=== PATIENT | male | born 1985 ===

== ENCOUNTER 2019-01-13 16:53 | Inpatient (IN) ==
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
[2019-01-13] MEDS ORDERED: Nicotine 21 MG PATCH.TD24 TD ONE (21:17)
[2019-01-13 21:49] LABS: BUN/Creatinine Ratio 16 (6-26); Blood Urea Nitrogen 16 mg/dL (6-20); eGFR For African Americans > 60 (> 60); eGFR For Non-African Americans > 60 (> 60)
[2019-01-13] MEDS ORDERED: *HR* HYDROcodone/Acet 5/325 mg TABLET PO PRN (23:31)
[2019-01-13] MEDS ORDERED: Naloxone 0.4 MG/ML INJ IVP PRN (23:31)
[2019-01-13] MEDS ORDERED: Acetaminophen 325 MG TABLET PO PRN (23:31)
[2019-01-13] MEDS ORDERED: Melatonin 3 MG TABLET PO PRN (23:34)
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
[2019-01-14 03:00] LABS: Hematocrit 42.5 % (37.5-50.1); Hemoglobin 13.6 g/dL (12.9-16.9); Mean Corpuscular Hemoglobin 28.9 pg (28.0-33.3); Mean Corpuscular Volume 90.4 fL (83.0-100.0); Mean Platelet Volume 8.7 fL (9.4-12.4); Platelet Count 316 K/mcL (140-400); Red Cell Distribution Width 14.3 % (11.5-14.5); White Blood Count 12.2 K/mcL (4.3-11.1)
[2019-01-14 03:20] LABS: BUN/Creatinine Ratio 16 (6-26); Blood Urea Nitrogen 16 mg/dL (6-20); Calcium 9.3 mg/dL (8.6-10.3); Carbon Dioxide 27 mEq/L (23-29); Chloride 104 mEq/L (98-107); Glucose 109 mg/dL (70-105); Osmolality,Calculated 292 (280-300); Potassium 3.5 mEq/L (3.5-5.1); Sodium 140 mEq/L (136-145); eGFR For African Americans > 60 (> 60); eGFR For Non-African Americans > 60 (> 60)
[2019-01-14] MEDS ORDERED: Ondansetron 4 MG/2 ML VIAL IVP PRN (04:48)
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
--- NOTE | 2019-01-14 13:27 | Internal Med Progress Note ---
<Jake Lundberg - Last Filed: 01/14/19 13:24> Hospitalist Progress Note - Encounter Date of Encounter: 01/14/19 Time of Encounter: 09:50 - Subjective Interval History: When seen this morning, patient was resting comfortably in his bed. He continues to admit to soreness in his 4th finger of his R hand. He denies any fever, cou gh, or wheezing. Denies any chest pain or SOB. Admits to swelling and pain in his R knee. - Exam Vitals: Temp Pulse Resp BP Pulse Ox 98.2 F 85 14 126/83 85 01/14/19 11:53 01/14/19 11:53 01/14/19 11:53 01/14/19 11:53 01/14/19 11:53 Exam: GENERAL APPEARANCE: Well developed, well nourished, alert and cooperative, and appears to be in no acute distress. HEAD: normocephalic. EYES: vision is grossly intact. EARS: hearing grossly intact. NOSE: No nasal discharge. THROAT: Oral cavity and pharynx normal. No inflammation, swelling, exudate, or lesions. CARDIAC: Normal S1 and S2. No S3, S4 or murmurs. Rhythm is regular. There is no peripheral edema, cyanosis or pallor. Extremities are warm and well perfused. Capillary refill is less than 2 seconds. No carotid bruits. LUNGS: Clear to auscultation and percussion without rales, rhonchi, wheezing or diminished breath sounds. ABDOMEN: Positive bowel sounds. Soft, nondistended, nontender. No guarding or rebound. No masses. EXTREMITIES: Minor swelling of the 4th metatarsal on the R hand. Patient able to move all fingers. Sensations intact. Minor tenderness with palpation. LOWER EXTREMITY: Mild erythema and swelling of the R knee. PSYCHIATRIC: The mental examination revealed the patient was oriented to person, place, and time. - Assessment and Plan (1) Osteomyelitis of right hand Current Visit: Yes Status: Acute Assessment and Plan: He has been afebrile. Patient has been seen by orthopedics. Plan for formal debridement in the operating room with Dr. Peguero tomorrow. Plan: - C/W IV vancomycin day #1. - NPO at midnight. - Blood Cx NGTD. - Monitor for worsening signs of infection. (2) Cellulitis Current Visit: Yes Status: Acute Assessment and Plan: Erythematous swelling over the R knee. with small skin abrasion in the center. Patient retains full ROM. Started on IV vancomycin. Plan: - C/W IV vancomycin. - Blood Cx NGTD. (3) Nicotine abuse Current Visit: Yes Status: Acute Assessment and Plan: Nicotine patch. DVT Prophylaxis: SCDs. - Time Spent with Patient Total time spent is greater than 50% in coordination of care (as documented) at patient's floor/unit and/or counseling patient: Internal Medicine: Result - Labs CBC & Chem 7: 01/14/19 02:23 01/14/19 02:23 Labs: Short CBC 01/14/19 Range/Units 02:23 WBC 12.2 H (4.3-11.1) K/mcL Hgb 13.6 (12.9-16.9) g/dL Hct 42.5 (37.5-50.1) % Plt Count 316 (140-400) K/mcL BMP 01/13/19 01/14/19 21:00 02:23 Sodium 140 Potassium 3.5 Chloride 104 Carbon Dioxide 27 BUN 16 16 Creatinine 1.03 1.01 Glucose 109 H Calcium 9.3 Consult Discharge Plan - Plan Referrals: NONE,PCP [Primary Care Provider] - <Ryan Whaley - Last Filed: 01/14/19 14:21> Hospitalist Progress Note - Encounter Date of Encounter: 01/14/19 - Exam Vitals: Temp Pulse Resp BP Pulse Ox 98.2 F 85 14 126/83 85 01/14/19 11:53 01/14/19 11:53 01/14/19 11:53 01/14/19 11:53 01/14/19 11:53 - Assessment and Plan (1) Osteomyelitis of right hand Current Visit: Yes Status: Acute (2) DVT prophylaxis Current Visit: Yes Status: Acute (3) Nicotine abuse Current Visit: Yes Status: Acute (4) Cellulitis Current Visit: Yes Status: Acute - Time Spent with Patient Total time spent is greater than 50% in coordination of care (as documented) at patient's floor/unit and/or counseling patient: Internal Medicine: Result - Labs CBC & Chem 7: 01/14/19 02:23 01/14/19 02:23 Labs: Short CBC 01/14/19 Range/Units 02:23 WBC 12.2 H (4.3-11.1) K/mcL Hgb 13.6 (12.9-16.9) g/dL Hct 42.5 (37.5-50.1) % Plt Count 316 (140-400) K/mcL BMP 01/13/19 01/14/19 21:00 02:23 Sodium 140 Potassium 3.5 Chloride 104 Carbon Dioxide 27 BUN 16 16 Creatinine 1.03 1.01 Glucose 109 H Calcium 9.3 - Attending Attestation I examined this patient and my medical decision-making was reviewed with the Resident Physician on 01/14/19. I agree with the documented findings, disposition and treatment plan as described except to the extent set forth below. Mr Murphy is currently admitted for acute OM of R hand. He is to go to OR. He remains moderate to high risk due to potential for worsening clinical status. Mr Murphy won't answer questions for me. Friend says he is in pain. He won't make eye contact with me. Had visitors earlier - concern for drugs relayed by nursing. No specific evidence found. No further nausea. No SOB. Did not sleep well. Exam Hand with some swelling noted. Does not meet my eyes. Plan: No visitors. Drug screen. Surgery tomorrow per ortho. Continue IV abx. <Jake Lundberg - Last Filed: 01/14/19 13:24> (1) Osteomyelitis of right hand Qualifiers: Osteomyelitis type: unspecified type Qualified Code(s): M86.9 - Osteomyelitis, unspecified (2) Cellulitis Qualifiers: Site of cellulitis of extremity: lower extremity Laterality: right Qualified Code(s): L03.115 - Cellulitis of right lower limb <Ryan Whaley - Last Filed: 01/14/19 14:21> (1) Osteomyelitis of right hand Qualifiers: Osteomyelitis type: other chronic Qualified Code(s): M86.641 - Other chronic osteomyelitis, right hand (4) Cellulitis Qualifiers: Site of cellulitis of extremity: lower extremity Laterality: right Qualified Code(s): L03.115 - Cellulitis of right lower limb
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
[2019-01-14] MEDS ORDERED: Melatonin 3 MG TABLET PO PRN (14:21)
[2019-01-14] MEDS ORDERED: hydrOXYzine pamoate 25 MG CAPSULE PO PRN (16:04)
[2019-01-14 16:57] LABS: Amphetamine Screen,Urine Positive ng/mL (Cutoff=1000); Barbiturate Screen,Urine Negative ng/mL (Cutoff=200); Benzodiazepines Screen,Urine Positive ng/mL (Cutoff=200); Cannabinoid Screen,Urine Negative ng/mL (Cutoff = 50); Cocaine Screen,Urine Negative ng/mL (Cutoff= 300); Opiate Screen,Urine Negative ng/mL (Cutoff=300); Phencyclidine Screen,Urine Negative ng/mL (Cutoff=25)
[2019-01-14] MEDS ORDERED: Benzocaine 20% 12 APPL GEL..GRAM. TP PRN (20:20)
[2019-01-14] MEDS ORDERED: Nicotine 7 MG PATCH.TD24 TD SCH (20:30)
[2019-01-14] MEDS ORDERED: Nicotine 2 MG GUM BC PRN (21:41)
--- NOTE | 2019-01-14 21:45 | Event Note ---
Date of Encounter: 01/14/19 Time of Encounter: 21:30 Notified by nurse of patient threatening to leave and kill himself. Assessed patient at bedside and told him we were informed by his nurse of his threat to leave and harm himself. Asked if this were true and he said he would never do it because he loves life too much. Asked again if he had any thoughts of harming himself or anyone else and he continues to deny it. Requests to go outside to smoke, informed he cannot, but will order nicotine patch and gum and patient is agreeable. Family at bedside at this time. Denies any other needs at this time. Nurse to notify of any changes.
[2019-01-15 01:55] LABS: Bilirubin,Urine Negative (Negative); Blood,Urine Negative (Negative); Clarity,Urine Clear (Clear); Color,Urine Yellow (Yellow); Glucose,Urine (UA) Normal (Normal); Ketones,Urine Negative (Negative); Leukocyte Esterase,Urine Negative (Negative); Nitrite,Urine Negative (Negative); Protein,Urine Negative (Neg-Trace); Specific Gravity,Urine 1.025 (1.010-1.025); Urobilinogen,Urine Normal (Normal)
[2019-01-15] MEDS ORDERED: Isovue-370 500 ML BOTTLE IVP ONE (06:51)
[2019-01-15 06:56] VITALS: BP 129/78
--- NOTE | 2019-01-15 06:58 | Orthopedics Progress Note ---
Date of Encounter: 01/15/19 Time of Encounter: 06:52 Subjective Interval history: S: The patient is sitting up in his chair sleeping. He is very somnolent and barely arousable. He is refusing exam. O: AFVSS Right upper extremity skin and soft tissues intact with mild swelling between the long and ring fingers along the dorsal aspect with mild redness. Tenderness to palpation as expected. He will not comply with neurovascular exam. Right lower extremity shows palms sized patch of erythema along the anterior knee in the suprapatellar region with what appears to be a punctate lesion. It is quite tender. He refuses any further examination of the. I am not able to evaluate for knee effusion or motion of the knee. He will not comply with a distal neurovascular exam. Diagnostic Imaging: I did personally review and interpret x-rays of the right hand consistent with osteomyelitis of the ring finger metacarpal head. A: Right ring finger metacarpal had osteomyelitis Likely subcutaneous abscess along the right knee suprapatellar region P: Plan for incision, drainage, irrigation, debridement of the right hand today in the operating room. CT scan with contrast to evaluate for abscess of the right knee and I anticipate drainage of this as well under the same anesthetic. Nothing by mouth. Objective Vital signs: Vital Signs Temp Pulse Resp BP Pulse Ox 01/15/19 04:30 97.6 F 71 126/82 97 01/14/19 23:07 98.2 F 92 18 124/87 99 01/14/19 18:40 98.1 F 101 20 135/91 100 01/14/19 16:00 97.8 F 100 16 142/89 99 01/14/19 11:53 98.2 F 85 14 126/83 85 01/14/19 07:08 97.7 F 94 16 119/78 100 Intake and Output 01/14/19 01/14/19 01/15/19 15:59 23:59 07:59 Intake Total 720 / 1950 840 / 1950 0 / 0 Output Total 650 / 1250 600 / 1250 0 / 0 Balance 70 / 700 240 / 700 0 / 0 Intake: IV Fluids 500 / 500 Vancocin 1,000 MG In 0.9 % 500 / 500 Sodium Chloride 250 ML @ 166. 667 mls/hr IVPB Q12H AJ Rx#: [id number] Oral 720 / 1450 340 / 1450 0 / 0 Output: Urine 650 / 1250 600 / 1250 0 / 0 Other: Meal Breakfast Percent of Meal Consumed 75% # Voids 1 - Labs CBC & BMP: 01/14/19 02:23 01/14/19 02:23 Labs: Abnormal lab results WBC 12.2 K/mcL (4.3-11.1) H 01/14/19 02:23 MPV 8.7 fL (9.4-12.4) L 01/14/19 02:23 Glucose 109 mg/dL (70-105) H 01/14/19 02:23 Ur Amphetamines Screen Positive ng/mL ([id number]) H 01/14/19 16:30 U Benzodiazepines Scrn Positive ng/mL ([id number]=[id number]) H 01/14/19 16:30 Consult Discharge Plan - Plan Referrals: NONE,PCP [Primary Care Provider] -
--- NOTE | 2019-01-15 08:43 | Internal Med Progress Note ---
Hospitalist Progress Note - Encounter Date of Encounter: 01/15/19 - Exam Vitals: Temp Pulse Resp BP Pulse Ox 97.8 F 76 18 129/78 96 01/15/19 06:34 01/15/19 06:34 01/15/19 06:34 01/15/19 06:34 01/15/19 06:34 - Time Spent with Patient Total time spent is greater than 50% in coordination of care (as documented) at patient's floor/unit and/or counseling patient: Internal Medicine: Result - Labs CBC & Chem 7: 01/14/19 02:23 01/14/19 02:23 Labs: Urine 01/15/19 Range/Units 01:35 Urine Color Yellow (Yellow) Urine Clarity Clear (Clear) Urine pH 6.0 (5.0-8.0) pH Units Ur Specific [place] 1.025 (1.010-1.025) Urine Protein Negative (Neg-Trace) mg/dL Urine Glucose (UA) Normal (Normal) mg/dL - Impressions Impressions Knee CT 01/15/19 06:51 IMPRESSION: 1. Findings compatible with cellulitis over the anterior aspect of the right knee. 2. No CT scan evidence of abscess or osteomyelitis. No radiopaque foreign bodies. D/ / Niranjan Carpio MD / Niranjan Carpio MD Interpreting Provider: Niranjan Carpio MD Consult Discharge Plan - Plan Referrals: NONE,PCP [Primary Care Provider] -
[2019-01-15] MEDS ORDERED: Aminoglycoside Consult 1 EACH MC ONE (09:17)
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
== END 2019-01-15 09:18 | disposition left against medical advice (07) | DRG 344 ==
LOC: 3NENU 16:53 → EMEROOARM 16:53 → SUATTDRO 20:48 → 3NENU 22:01
PROVIDERS: ADMIT Family Medicine; ATTEND Internal Medicine

== ENCOUNTER 2019-05-04 10:05 | Inpatient (IN) ==
[2019-05-04] MEDS ORDERED: Albuterol 2.5 MG/3 ML NEBULIZER IH PRN ×2 (10:34→13:37)
[2019-05-04] MEDS ORDERED: Ringers Solution, Lactated 1,000 ML IVC SCH (10:45)
[2019-05-04] MEDS ORDERED: Morphine Sulfate 2 MG/ML SYRINGE IVP PRN ×2 (10:51→13:37)
[2019-05-04] MEDS ORDERED: *HR* HYDROcodone/Acet 5/325 mg TABLET PO PRN (10:51)
[2019-05-04] MEDS ORDERED: Ibuprofen 400 MG TABLET PO PRN ×2 (11:08→13:37)
[2019-05-04] MEDS ORDERED: Ondansetron 4 MG/2 ML VIAL IVP PRN ×2 (11:08→13:37)
[2019-05-04] MEDS ORDERED: Acetaminophen 325 MG TABLET PO PRN ×2 (11:08→13:37)
[2019-05-04] MEDS ORDERED: Lidocaine -MPF 2% 2 ML VIAL ONE (11:53)
[2019-05-04] MEDS ORDERED: *HR* Midazolam HCl 5 MG/5 ML VIAL IVP ONE (11:53)
[2019-05-04] MEDS ORDERED: *HR* FentaNYL (PF) 100 MCG/2 ML VIAL ONE (11:53)
[2019-05-04] MEDS ORDERED: Dexamethasone 4 MG/ML VIAL ONE (11:53)
[2019-05-04] MEDS ORDERED: Ondansetron 4 MG/2 ML VIAL ONE (11:53)
[2019-05-04] MEDS ORDERED: *HR* Propofol 200 MG/20 ML VIAL IVP ONE (11:53)
[2019-05-04] MEDS ORDERED: Vancomycin 1,000 MG VIAL ONE (12:10)
[2019-05-04] MEDS ORDERED: Nicotine 21 MG PATCH.TD24 TD SCH (12:45)
[2019-05-05 05:19] LABS: Basophils % 0.5 %; Eosinophils % 0.2 %; Immature Granulocytes % 0.1 % (0-4); Lymphocytes # 1.8 K/mcL (0.6-4.6); Lymphocytes % 21.1 %; Mean Corpuscular HGB Conc 32.6 g/dL (31.6-35.5); Mean Corpuscular Volume 92.3 fL (83.0-100.0); Mean Platelet Volume 9.3 fL (9.4-12.4); Monocytes # 0.8 K/mcL (0.0-1.3); Monocytes % 8.6 %; Platelet Count 321 K/mcL (140-400); Red Blood Count 4.66 M/mcL (4.19-5.50); Red Cell Distribution Width 15.5 % (11.5-14.5); Segmented Neutrophils % 69.5 %; White Blood Count 8.7 K/mcL (4.3-11.1)
[2019-05-05 05:37] LABS: BUN/Creatinine Ratio 18 (6-26); Blood Urea Nitrogen 14 mg/dL (6-20); Calcium 9.1 mg/dL (8.6-10.3); Carbon Dioxide 27 mEq/L (23-29); Chloride 107 mEq/L (98-107); Glucose 124 mg/dL (70-105); Magnesium 1.8 mg/dL (1.6-2.6); Osmolality,Calculated 292 (280-300); Potassium 3.8 mEq/L (3.5-5.1); Sodium 140 mEq/L (136-145); eGFR For African Americans > 60 (> 60); eGFR For Non-African Americans > 60 (> 60)
[2019-05-05] MEDS: Ringers Solution, Lactated 1,000 ML IVC SCH ×2 (06:21→16:29)
[2019-05-05] MEDS ORDERED: Nicotine 21 MG PATCH.TD24 TD SCH (12:45)
[2019-05-05] MEDS ORDERED: Cefepime HCl 2,000 MG in Water for inj. (sterile) 20 ML IVP SCH (16:32)
[2019-05-05 16:41] VITALS: BP 110/69
[2019-05-05] MEDS ORDERED: *HR* Heparin 5,000 UNIT/ML VIAL SQ SCH (18:00)
[2019-05-05] MEDS ORDERED: Aminoglycoside Consult 1 EACH MC ONE (18:15)
== END 2019-05-05 18:16 | disposition left against medical advice (07) | DRG 316 ==
LOC: SAMDAY 10:05 → SUATTDRO 13:38 → 3NENU 13:38
PROVIDERS: ADMIT Internal Medicine; ATTEND Internal Medicine

== ENCOUNTER 2019-05-08 12:04 | Inpatient (IN) ==
[2019-05-08] MEDS ORDERED: Ipratropium/Albuterol Neb 3 ML IH ONE (12:37)
[2019-05-08] MEDS ORDERED: 0.9 % Sodium Chloride 1,000 ML IVC ONE (13:25)
[2019-05-08 14:54] LABS: Basophils # 0.1 K/mcL (0.0-0.2); Basophils % 0.8 %; Eosinophils # 0.1 K/mcL (0.0-0.6); Hematocrit 41.5 % (37.5-50.1); Hemoglobin 14.5 g/dL (12.9-16.9); Immature Granulocytes % 0.3 % (0-4); Lymphocytes # 2.1 K/mcL (0.6-4.6); Lymphocytes % 27.3 %; Mean Corpuscular HGB Conc 34.9 g/dL (31.6-35.5); Mean Corpuscular Hemoglobin 30.2 pg (28.0-33.3); Mean Corpuscular Volume 86.5 fL (83.0-100.0); Mean Platelet Volume 8.6 fL (9.4-12.4); Monocytes # 0.9 K/mcL (0.0-1.3); Monocytes % 11.5 %; Neutrophils # 4.6 K/mcL (1.6-8.9); Platelet Count 384 K/mcL (140-400); Red Cell Distribution Width 15.2 % (11.5-14.5); Segmented Neutrophils % 59.1 %; White Blood Count 7.8 K/mcL (4.3-11.1)
[2019-05-08] MEDS ORDERED: Naloxone 0.4 MG/ML INJ IVP PRN (15:06)
[2019-05-08 15:09] LABS: BUN/Creatinine Ratio 17 (6-26); Blood Urea Nitrogen 17 mg/dL (6-20); Calcium 9.8 mg/dL (8.6-10.3); Carbon Dioxide 27 mEq/L (23-29); Chloride 103 mEq/L (98-107); Glucose 110 mg/dL (70-105); Osmolality,Calculated 292 (280-300); Potassium 3.5 mEq/L (3.5-5.1); Sodium 140 mEq/L (136-145); eGFR For African Americans > 60 (> 60); eGFR For Non-African Americans > 60 (> 60)
[2019-05-08] MEDS ORDERED: Piperacillin/Tazobactam 3.375 GM in 0.9 % Sodium Chloride Mini Bag 100 ML IVPB SCH (16:00)
[2019-05-08] MEDS: Ketorolac 15 MG/ML VIAL IVP SCH ×2 (18:33→18:42)
[2019-05-08] MEDS: Ringers Solution, Lactated 1,000 ML IVC SCH (18:42)
[2019-05-08] MEDS: Cefepime HCl 2,000 MG in 0.9 % Sodium Chloride Mini Bag 100 ML IVPB SCH (18:42)
[2019-05-08] MEDS: *HR* Heparin 5,000 UNIT/ML VIAL SQ SCH (18:43)
[2019-05-08] MEDS: *HR* LORazepam 2 MG/ML VIAL IVP PRN (22:18)
[2019-05-09] MEDS: Ketorolac 15 MG/ML VIAL IVP SCH ×4 (00:09→17:44)
[2019-05-09] MEDS: Cefepime HCl 2,000 MG in 0.9 % Sodium Chloride Mini Bag 100 ML IVPB SCH ×3 (01:31→17:39)
[2019-05-09 04:50] LABS: Hematocrit 39.5 % (37.5-50.1); Mean Corpuscular HGB Conc 32.9 g/dL (31.6-35.5); Mean Platelet Volume 8.4 fL (9.4-12.4); Platelet Count 306 K/mcL (140-400); Red Blood Count 4.34 M/mcL (4.19-5.50); Red Cell Distribution Width 15.2 % (11.5-14.5)
[2019-05-09 05:10] LABS: BUN/Creatinine Ratio 18 (6-26); Blood Urea Nitrogen 17 mg/dL (6-20); C-Reactive Protein < 5 mg/L (Less than 10); Calcium 8.8 mg/dL (8.6-10.3); Carbon Dioxide 22 mEq/L (23-29); Chloride 110 mEq/L (98-107); Glucose 94 mg/dL (70-105); Osmolality,Calculated 289 (280-300); Sodium 139 mEq/L (136-145); eGFR For African Americans > 60 (> 60); eGFR For Non-African Americans > 60 (> 60)
[2019-05-09] MEDS: *HR* Heparin 5,000 UNIT/ML VIAL SQ SCH ×2 (05:18→18:16)
[2019-05-09] MEDS: Ringers Solution, Lactated 1,000 ML IVC SCH (07:40)
[2019-05-09 12:07] LABS: Amphetamine Screen,Urine Positive ng/mL (Cutoff=1000); Barbiturate Screen,Urine Negative ng/mL (Cutoff=200); Benzodiazepines Screen,Urine Negative ng/mL (Cutoff=200); Cannabinoid Screen,Urine Positive ng/mL (Cutoff = 50); Cocaine Screen,Urine Negative ng/mL (Cutoff= 300); Opiate Screen,Urine Negative ng/mL (Cutoff=300); Phencyclidine Screen,Urine Negative ng/mL (Cutoff=25)
[2019-05-09] MEDS: *HR* LORazepam 2 MG/ML VIAL IVP PRN (13:32)
[2019-05-09] MEDS ORDERED: *HR* LORazepam 2 MG/ML VIAL IVP ONE (15:27)
[2019-05-09] MEDS: *HR* LORazepam 2 MG/ML VIAL IVP SCH ×2 (17:44→20:06)
[2019-05-09] MEDS ORDERED: *HR* Promethazine 25 MG/ML VIAL IVP ONE ×2 (22:38→23:45)
[2019-05-09] MEDS: Haloperidol Lactate 5 MG/ML VIAL IVP ONE ×2 (23:17→23:56)
[2019-05-09] MEDS ORDERED: Haloperidol Lactate 5 MG/ML VIAL IVP ONE (23:35)
[2019-05-09] MEDS ORDERED: *HR* Promethazine 25 MG/ML VIAL ONE (23:47)
[2019-05-10 01:04] LABS: Basophils # 0.1 K/mcL (0.0-0.2); Basophils % 1.5 %; Eosinophils # 0.2 K/mcL (0.0-0.6); Eosinophils % 2.8 %; Hematocrit 38.8 % (37.5-50.1); Hemoglobin 13.4 g/dL (12.9-16.9); Immature Granulocytes % 0.2 % (0-4); Lymphocytes # 1.6 K/mcL (0.6-4.6); Lymphocytes % 29.7 %; Mean Corpuscular HGB Conc 34.5 g/dL (31.6-35.5); Mean Corpuscular Hemoglobin 30.3 pg (28.0-33.3); Mean Corpuscular Volume 87.8 fL (83.0-100.0); Mean Platelet Volume 8.6 fL (9.4-12.4); Monocytes # 0.6 K/mcL (0.0-1.3); Monocytes % 11.3 %; Neutrophils # 2.9 K/mcL (1.6-8.9); Platelet Count 336 K/mcL (140-400); Red Blood Count 4.42 M/mcL (4.19-5.50); Red Cell Distribution Width 14.9 % (11.5-14.5); Segmented Neutrophils % 54.5 %; White Blood Count 5.4 K/mcL (4.3-11.1)
[2019-05-10] MEDS: Ketorolac 15 MG/ML VIAL IVP SCH ×4 (01:10→20:11)
[2019-05-10] MEDS: Cefepime HCl 2,000 MG in 0.9 % Sodium Chloride Mini Bag 100 ML IVPB SCH ×3 (01:10→22:07)
[2019-05-10] MEDS: *HR* LORazepam 2 MG/ML VIAL IVP SCH ×6 (01:11→22:08)
[2019-05-10 01:13] LABS: BUN/Creatinine Ratio 18 (6-26); Blood Urea Nitrogen 17 mg/dL (6-20); Calcium 8.6 mg/dL (8.6-10.3); Carbon Dioxide 25 mEq/L (23-29); Chloride 107 mEq/L (98-107); Glucose 96 mg/dL (70-105); Magnesium 1.7 mg/dL (1.6-2.6); Osmolality,Calculated 285 (280-300); Phosphorous 2.8 mg/dL (2.7-4.5); Potassium 3.8 mEq/L (3.5-5.1); Sodium 137 mEq/L (136-145); eGFR For African Americans > 60 (> 60); eGFR For Non-African Americans > 60 (> 60)
[2019-05-10] MEDS ORDERED: MetroNIDAZOLE 500 MG/100 ML 500 MG/100 ML BAG IVPB SCH ×2 (05:00→16:00)
[2019-05-10] MEDS: *HR* Heparin 5,000 UNIT/ML VIAL SQ SCH ×3 (06:33→20:12)
[2019-05-10] MEDS ORDERED: metroNIDAZOLE 500 MG TABLET PO SCH (09:00)
[2019-05-11] MEDS: Ketorolac 15 MG/ML VIAL IVP SCH ×4 (00:40→17:56)
[2019-05-11] MEDS: *HR* LORazepam 2 MG/ML VIAL IVP SCH ×6 (00:40→22:14)
[2019-05-11] MEDS: MetroNIDAZOLE 500 MG/100 ML 500 MG/100 ML BAG IVPB SCH ×3 (05:30→22:14)
[2019-05-11 06:15] LABS: Basophils # 0.1 K/mcL (0.0-0.2); Basophils % 2.3 %; Eosinophils # 0.3 K/mcL (0.0-0.6); Eosinophils % 5.4 %; Hematocrit 41.7 % (37.5-50.1); Hemoglobin 14.3 g/dL (12.9-16.9); Immature Granulocytes % 0.2 % (0-4); Lymphocytes # 1.9 K/mcL (0.6-4.6); Lymphocytes % 39.5 %; Mean Corpuscular HGB Conc 34.3 g/dL (31.6-35.5); Mean Corpuscular Hemoglobin 30.8 pg (28.0-33.3); Mean Corpuscular Volume 89.7 fL (83.0-100.0); Mean Platelet Volume 9.2 fL (9.4-12.4); Monocytes # 0.6 K/mcL (0.0-1.3); Monocytes % 12.1 %; Neutrophils # 1.9 K/mcL (1.6-8.9); Platelet Count 338 K/mcL (140-400); Red Blood Count 4.65 M/mcL (4.19-5.50); Red Cell Distribution Width 15.4 % (11.5-14.5); Segmented Neutrophils % 40.5 %; White Blood Count 4.8 K/mcL (4.3-11.1)
[2019-05-11 06:27] LABS: BUN/Creatinine Ratio 26 (6-26); Blood Urea Nitrogen 23 mg/dL (6-20); Calcium 8.9 mg/dL (8.6-10.3); Carbon Dioxide 23 mEq/L (23-29); Chloride 107 mEq/L (98-107); Glucose 88 mg/dL (70-105); Magnesium 1.8 mg/dL (1.6-2.6); Osmolality,Calculated 291 (280-300); Phosphorous 3.2 mg/dL (2.7-4.5); Sodium 139 mEq/L (136-145); eGFR For African Americans > 60 (> 60); eGFR For Non-African Americans > 60 (> 60)
[2019-05-11] MEDS: *HR* Heparin 5,000 UNIT/ML VIAL SQ SCH ×2 (06:28→16:18)
[2019-05-11] MEDS: Cefepime HCl 2,000 MG in 0.9 % Sodium Chloride Mini Bag 100 ML IVPB SCH ×2 (06:35→13:08)
[2019-05-12] MEDS: *HR* LORazepam 2 MG/ML VIAL IVP SCH ×2 (00:01→05:01)
[2019-05-12] MEDS: Ketorolac 15 MG/ML VIAL IVP SCH ×2 (00:01→06:07)
[2019-05-12] MEDS: Cefepime HCl 2,000 MG in 0.9 % Sodium Chloride Mini Bag 100 ML IVPB SCH ×2 (00:05→06:08)
[2019-05-12 04:28] VITALS: BP 105/66
[2019-05-12] MEDS: MetroNIDAZOLE 500 MG/100 ML 500 MG/100 ML BAG IVPB SCH (05:01)
[2019-05-12 06:02] LABS: Basophils # 0.1 K/mcL (0.0-0.2); Basophils % 1.8 %; Eosinophils # 0.2 K/mcL (0.0-0.6); Eosinophils % 4.7 %; Hematocrit 38.9 % (37.5-50.1); Hemoglobin 12.8 g/dL (12.9-16.9); Immature Granulocytes % 0.2 % (0-4); Lymphocytes % 40.1 %; Mean Corpuscular HGB Conc 32.9 g/dL (31.6-35.5); Mean Corpuscular Hemoglobin 30.5 pg (28.0-33.3); Mean Corpuscular Volume 92.6 fL (83.0-100.0); Mean Platelet Volume 8.8 fL (9.4-12.4); Monocytes # 0.6 K/mcL (0.0-1.3); Monocytes % 12.5 %; Platelet Count 310 K/mcL (140-400); Red Cell Distribution Width 15.4 % (11.5-14.5); Segmented Neutrophils % 40.7 %; White Blood Count 4.9 K/mcL (4.3-11.1)
[2019-05-12] MEDS: *HR* Heparin 5,000 UNIT/ML VIAL SQ SCH (06:13)
[2019-05-12 06:24] LABS: BUN/Creatinine Ratio 27 (6-26); Blood Urea Nitrogen 23 mg/dL (6-20); Calcium 8.6 mg/dL (8.6-10.3); Carbon Dioxide 25 mEq/L (23-29); Chloride 108 mEq/L (98-107); Glucose 96 mg/dL (70-105); Magnesium 1.7 mg/dL (1.6-2.6); Osmolality,Calculated 292 (280-300); Sodium 139 mEq/L (136-145); eGFR For African Americans > 60 (> 60); eGFR For Non-African Americans > 60 (> 60)
== END 2019-05-12 15:30 | disposition home or self-care (01) | DRG 344 ==
LOC: 3ANU 12:04 → EMEROOARM 12:04 → 3ANU 15:50
PROVIDERS: ADMIT Internal Medicine; ATTEND Internal Medicine